=== PATIENT | female | born 1975 | race Caucasian/White ===

== ENCOUNTER 2017-02-02 18:12 | Emergency (ER) | payer OTHER ==
[2017-02-02 20:07] LABS: HEMOGLOBIN 13.4 gm/dl (12.3-15.3); RED BLOOD COUNT 4.51 M/UL (4.00-5.10); WHITE BLOOD COUNT 8.3 K/UL (4.5-11.0)
[2017-02-02 20:34] LABS: BUN/CREATININE RATIO 16 (0-10)
== END 2017-02-03 00:10 | disposition home or self-care (01) ==
LOC: ER1 18:12
PROVIDERS: Family Medicine
DX: G43.109 Migraine with aura, not intractable, without status migrainosus (principal); E03.9 Hypothyroidism, unspecified; Z88.0 Allergy status to penicillin; Z88.4 Allergy status to anesthetic agent
CPT/HCPCS: 36415; 70450; 71010; 80053; 81001; 82550; 82553; 83874; 84443; 84484; 85025; 93005; 96361; 96374; 96375; 99285; J1200; J1885; J2765

== ENCOUNTER 2021-07-11 17:59 | Emergency (ER) | payer SELFPAY ==
[2021-07-11 18:28] LABS: HEMOGLOBIN 13.5 gm/dl (12.3-15.3); RED BLOOD COUNT 4.66 M/UL (4.00-5.10); WHITE BLOOD COUNT 10.2 K/UL (4.5-11.0)
[2021-07-11 18:47] LABS: BUN/CREATININE RATIO 24 (0-10)
[2021-07-11] MEDS ORDERED: DELSYM30 MG/5 ML PO (21:11)
[2021-07-11] MEDS ORDERED: NEB MACHINE (21:11)
[2021-07-11] MEDS ORDERED: ALBUTEROL1.25 MG/3 INH (21:11)
== END 2021-07-11 21:14 | disposition home or self-care (01) ==
LOC: ER1 17:59
PROVIDERS: Physician Assistant Medical
DX: R06.02 Shortness of breath (principal); R51.9 Headache, unspecified; Z86.718 Personal history of other venous thrombosis and embolism; Z90.710 Acquired absence of both cervix and uterus; Z88.0 Allergy status to penicillin; Z85.850 Personal history of malignant neoplasm of thyroid
CPT/HCPCS: 71045; 80053; 85025; 85379; 99285